=== PATIENT | male | born 2000 | race African-American/Black ===

== ENCOUNTER 2021-07-05 05:23 | Emergency (ER) | payer BC ==
[~2021-07-05] VITALS: Ht 170.2 cm; Wt 80.0 kg
[2021-07-05 05:25] VITALS: BP 120/88
[2021-07-05] MEDS ORDERED: IBUP-2029 MT (05:58)
== END 2021-07-05 06:20 | disposition home or self-care (01) ==
LOC: ER 05:23
DX: S00.83XA Contusion of other part of head, initial encounter (principal); J45.909 Unspecified asthma, uncomplicated; V43.52XA Car driver injured in collision with other type car in traffic accident, initial encounter; Y93.89 Activity, other specified; Y92.488 Other paved roadways as the place of occurrence of the external cause
CPT/HCPCS: 99283; Z7610